=== PATIENT | female | born 1955 | race Caucasian/White ===

== ENCOUNTER → 2017-09-08 | Outpatient (CLI) | payer BC ==
--- NOTE | 2017-09-08 15:56 | RAD ---
DATE: 09/08/2017. EXAM: DIGITAL DIAGNOSTIC LT, ULTRASOUND BREAST LEFT. HISTORY: Density on mammographic screening. Additional views are requested. COMPARISON: 08/11/2017. No remote comparisons are available. This study was interpreted with the benefit of Computerized Aided Detection (CAD). FINDINGS: The breast parenchyma is heterogeneously dense, which could reduce sensitivity of mammography. Breast parenchyma level C.. The density of concern inferomedially on the left appears to be a parenchymal density on additional images and tomography. There is no clearly suspicious mammographic finding. Sonography of the left lower inner breast was also performed. This reveals no correlate for the mammographic density. There is no suspicious sonographic finding. A coarse calcification is superolaterally is benign. BI-RADS CATEGORY: 3 PROBABLY BENIGN FINDING(S)-SHORT INTERVAL FOLLOW-UP SUGGESTED. RECOMMENDED FOLLOW-UP: 6M 6 MONTH FOLLOW-UP. Six-month follow-up can be performed for a new small density inferomedially on the left without sonographic correlate to reestablish the patient's baseline. PQRS compliance statement: Patient information was entered into a reminder system with a target due date 09/08/2017 for the next mammogram. Mammography is a sensitive method for finding small breast cancers, but it does not detect them all and is not a substitute for careful clinical examination. A negative mammogram does not negate a clinically suspicious finding and should not result in delay in biopsying a clinically suspicious abnormality. "Our facility is accredited by the [employer] Mammography Program."
== END | disposition home or self-care (01) ==
LOC: MAMMO 12:55
PROVIDERS: ATTEND Family Medicine
DX: R92.1 Mammographic calcification found on diagnostic imaging of breast (principal)
CPT/HCPCS: 76641; G0206; 77065